=== PATIENT | female | born 1995 | race Caucasian/White ===

== ENCOUNTER 2017-03-16 23:28 | Emergency (ER) | payer BC, OTHER ==
--- NOTE | 2017-03-17 00:46 | ERNOTE ---
Lower Extremity HPI - Narrative Date of Service: 03/16/17 - General Lower Extremities Pain: knee: left Source: patient Exam Limitations: no limitations - Immun/Allergies/Home Medications Immunizations: IMMUNIZATION HX Immunizations Up to Date Yes History of Influenza Vaccine Yes Hx Pneumococcal Vaccination No Allergies/Adverse Reactions: Allergies Allergy/AdvReac Type Severity Reaction Status Date / Time No Known Allergies Allergy Verified 03/16/17 23:43 Home Medications: HOME MEDICATIONS Acetaminophen [Tylenol] 650 mg PO Q4H PRN 09/06/15 [Last Taken 09/05/15] Doxylamine Succinate [Unisom] 25 mg PO HS 09/06/15 [Last Taken 09/05/15] ALPRAZolam [Xanax] 1 mg PO TID PRN 07/13/16 [Last Taken Unknown] Levonorgestrel [Mirena] 1 each IY PRN 07/13/16 [Last Taken Unknown] Bupropion HCl [Wellbutrin Xl] 300 mg PO DAILY 03/16/17 [Last Taken Unknown] Cephalexin 500 mg PO Q6H #20 tab 03/17/17 [Last Taken Unknown] Cephalexin [Keflex] 500 mg PO QID #28 capsule 03/17/17 [Last Taken Unknown] - History of Present Illness Narrative: The patient presents with a left knee injury. She was in her bed and was trying to adjust a fan at the end of the bed. She leaned over too far, fell out , landed with her left knee on a dinner plate, and suffered a laceration to her knee. She denies any other injury. Immunizations are up-to-date. No distal numbness or tingling. Occurred: just prior to arrival Location of Incident: home Method of Injury: Reports: fell Reason for Fall: Reports: lost balance Loss of Consciousness: Reports: no loss of consciousness Modifying Factors - (Improves): Reports: other - direct pressure Associated Symptoms: Denies: snapping, popping sensation, dizzy/light headedness Other Injuries: Reports: none Subsequent Symptoms: Denies: sensory loss, numbness Review of Systems - Review of Systems Constitutional: Present: no symptoms reported Respiratory: Present: no symptoms reported Gastrointestinal/Abdominal: Present: no symptoms reported - Patient's Past Medical History Patient History - Medical: Anxiety, Depression Patient History - Cardiac/Respiratory: No pertinent hx Patient History - Cancer: No Hx of Cancer Patient History - Surgical Procedures: Noncontributory Patient History - Other: None - Social History Living Situations: home Psych History: Hx of Anxiety, Hx of Depression Smoking Status: Current every day smoker Alcohol Use: none Drug Use: none - Immunizations Immunizations Up to Date: Yes Hx Pneumococcal Vaccination: No History of Influenza Vaccine: Yes Physical Exam - Physical Exam General Appearance: Present: wd/wn, alert, mild distress Respiratory: Present: no respiratory distress Cardiovascular/Chest: Present: regular rate, rhythm Peripheral Pulses: N=norm/S=strong/W=weak/B=bound/A=absent: Dorsalis-pedis (R): Normal, Dorsalis-pedis (L): Normal Extremity Exam: Present: normal range of motion, other - 4 cm transverse slightly irregular flap laceration anterior to the right knee. Minimal bleeding. No tendon or joint capsule seen. 1.5 cm deep. Clean. No FB.. Absent: bony tenderness, joint redness, joint swelling Skin Exam: Present: normal color ED Progress - Vital Signs Patient's Vital Signs:: I have reviewed the patient's vital signs. Vital Signs: Vital Signs 03/16/17 23:40 Temperature 37.2 C Pulse Rate 113 H Respiratory 18 Rate Blood Pressure 138/66 O2 Sat by Pulse 100 Oximetry - Progress/Reassessment Chief Complaint: Lower Extremity Pain/ Injury Procedures Left Anterior Knee Anesthesia: 1% Lidocaine - 5 ml I & D Prep: sterile drapes applied Wound's Depth/Shape: into subcutaneous, flap Wound Explored: clean, to base Wound Intervention: irrigated w/saline Distal NVT: neuro/vasc intact, no tendon injury Suture Size/Type: 3-0, nylon Number of Sutures: 9 - running Deep Layer Suture Size/Type: 4-0, other - Vicryl Number Deep Layer Sutures: 3 Plan - Plan Plan: Home. Routine wound repair. ROS in 10 days. Decrease activity. I decided to cover with antibiotics for 5 days after discharge. Rx sent. RN to advise patient. Departure Clinical Impression: Laceration of left knee - Departure Disposition: Home self-care Condition: Good Instructions: Laceration Care, Adult, [id number] Additional Instructions: Remove sutures in 10 days. Keep pressure dressing on for 2 days. Keep clean and dry. Soap and water is ok. Referrals: Barbara Lorenzo MD [Primary Care Provider] - Prescriptions: Cephalexin [Keflex] 500 mg PO QID #28 capsule Cephalexin 500 mg PO Q6H #20 tab
[2017-03-17 00:54] VITALS: BP 128/78
== END 2017-03-17 00:52 | disposition home or self-care (01) ==
LOC: ER 23:28
PROC: 0JQP0ZZ Repair Left Lower Leg Subcutaneous Tissue and Fascia, Open Approach (ICD-10-PCS; principal; 2017-03-16)
DX: S81.012A Laceration without foreign body, left knee, initial encounter (principal); F17.200 Nicotine dependence, unspecified, uncomplicated; W06.XXXA Fall from bed, initial encounter; W22.8XXA Striking against or struck by other objects, initial encounter; Y92.009 Unspecified place in unspecified non-institutional (private) residence as the place of occurrence of the external cause; F32.9 Major depressive disorder, single episode, unspecified

== ENCOUNTER 2017-03-25 18:13 | Emergency (ER) | payer BC, OTHER ==
--- NOTE | 2017-03-25 18:53 | ERNOTE ---
Neuro HPI ER Record Date of Service: 03/25/17 Presenting Symptoms: other - Possible seizure Time Seen by Provider: 03/25/17 18:30 Source: patient, RN notes reviewed Exam Limitations: no limitations Immunizations: IMMUNIZATION HX Immunizations Up to Date Yes History of Influenza Vaccine Yes Hx Pneumococcal Vaccination Yes Allergies/Adverse Reactions: Allergies Allergy/AdvReac Type Severity Reaction Status Date / Time No Known Allergies Allergy Verified 03/25/17 18:24 Home Medications: HOME MEDICATIONS Acetaminophen [Tylenol] 650 mg PO Q4H PRN 09/06/15 [Last Taken 09/05/15] Doxylamine Succinate [Unisom] 25 mg PO HS 09/06/15 [Last Taken 09/05/15] ALPRAZolam [Xanax] 1 mg PO TID PRN 07/13/16 [Last Taken Unknown] Levonorgestrel [Mirena] 1 each IY PRN 07/13/16 [Last Taken Unknown] Bupropion HCl [Wellbutrin Xl] 300 mg PO DAILY 03/16/17 [Last Taken Unknown] - History of Present Illness Narrative: 21 y/o female brought to the ED by her fiance for what may have been a seizure. She was standing in the kitchen early this morning, when her fiance heard a crash and realized she had fallen down. She was unconscious for approximately 2 minutes with her jaw clenched and generalized shaking/jerking movements. She has no recollection of the event or those immediately before it. She denies being incontinent. She has no prior history or seizures. She reports that she started taking an herbal supplement to increase her libido a few days ago. She is also having right shoulder pain since the incident. Date (Duration): 03/25/17 Time (Timing): 05:30 Onset: sudden onset, gone now Context: fall - Character of Deficits Additional Deficits: Absent: vision problems, impaired speech, difficulty swallowing, decrease ability to stand, decrease ability to walk, falling, weakness, off balance, cannot stand Baseline Cognition: Present: alert, oriented x 4 Baseline Gait: Present: walks w/o assistance Associated Symptoms: Denies: fever/chills, sweating, chest pain, neck/back pain , headache, fainting, altered mental status, disoriented, confused, agitated, trouble concentrating, trouble thinking Prior Treament: Denies: recently seen, similar symptoms before Review of Systems - Review of Systems Constitutional: Absent: recent illness, fever, chills, malaise EYE: Absent: eye pain, vision changes ENT: Absent: ear pain, nose congestion, sore throat Respiratory: Absent: shortness of breath, cough Cardiology: Absent: chest pain, palpitations, edema Gastrointestinal/Abdominal: Absent: nausea, vomiting, diarrhea, abdominal pain Genitourinary: Absent: frequency, dysuria Musculoskeletal: Present: joint pain. Absent: back pain, neck pain, joint swelling Skin: Absent: rash, lesions, lumps Neurological: Absent: headache, dizziness/light-headedness Endocrine: Present: no symptoms reported Hematologic/Lymphatic: Absent: easy bruising, easy bleeding Psych: Present: no symptoms reported - Patient's Past Medical History Patient History - Medical: Anxiety, Depression, Headache Patient History - Cardiac/Respiratory: No pertinent hx Patient History - Cancer: No Hx of Cancer Patient History - Surgical Procedures: Noncontributory Patient History - Other: None LMP (females 10-50): Mirena - Social History Living Situations: home Psych History: Hx of Anxiety, Hx of Depression Smoking Status: Current every day smoker Initiate information on Smoking Cessation: No Alcohol Use: none Drug Use: none - Immunizations Immunizations Up to Date: Yes Hx Pneumococcal Vaccination: Yes History of Influenza Vaccine: Yes Physical Exam - Physical Exam General Appearance: Present: wd/wn, alert, no apparent distress Head Exam: Present: normal inspection, no evidence of injury Eye Exam: Normal inspection: bilateral, PERRL: bilateral, EOMI: bilateral Ears, Nose, Throat: Present: normal ENT inspection Neck: Present: normal inspection, nontender, supple, full range of motion Respiratory: Present: no respiratory distress, normal breath sounds, no accessory muscle use, lungs clear Cardiovascular/Chest: Present: regular rate, rhythm, no murmur Extremity Exam: Present: decreased range of motion - Right shoulder. Absent: joint swelling, extremity edema Neurological Exam: Present: alert, oriented, normal mood/affect, no motor/ sensory deficits Skin Exam: Present: normal color, warm/dry [place] Coma Scale - Assess Eye Opening: Spontaneous Motor: Obeys Commands Verbal: Oriented - Total Coma Scale Total: 15 ED Progress - Results and Orders Patient's Lab Results:: I have reviewed the patient's lab results. - Vital Signs Patient's Vital Signs:: I have reviewed the patient's vital signs. Vital Signs: Vital Signs 03/25/17 18:15 Temperature 37.1 C Pulse Rate 127 H Respiratory 16 Rate Blood Pressure 175/102 O2 Sat by Pulse 99 Oximetry - Progress/Reassessment Chief Complaint: Seizure Activity Progress Note-Subjective: 03/25/17 20:24 Discussed drug screen results - takes Xanax and is positive for benzodiazepines , admits to marijuana use, but denies amphetamine use despite positive drug screen result. She admits to taking leftover Tramadol in the past few days. Continues to be tachy in the low 100's with a BP elevated at 160/100. Suspect illicit drug use, combination of Tramadol and Wellbutrin that could both lower seizure threshhold, and use of herbal supplement all contributed to episode. Departure Clinical Impression: Seizure-like activity Shoulder sprain Qualifiers: Encounter type: initial encounter Shoulder sprain type: unspecified sprain Laterality: right Qualified Code(s): S43.401A - Unspecified sprain of right shoulder joint, initial encounter - Departure Disposition: Home Follow Up Needed Condition: Stable Instructions: Shoulder Sprain, Form - Excuse from Work, School, or Physical Activity, Seizure, Adult, [id number] Additional Instructions: Contact neurology for follow up - do not drive until they have evaluated you Stop herbal supplements and recreational drug use Return to ER as needed for new/worsening symptoms Follow up with orthopedics if shoulder pain does not improve in 7 to 10 days Referrals: Barbara Lorenzo MD [Primary Care Provider] -
[2017-03-25 19:13] LABS: Urine Bilirubin Negative (NEGATIVE); Urine Blood Negative /ul (NEGATIVE); Urine Ketone Negative (NEGATIVE); Urine Nitrite Negative (NEGATIVE); Urine Protein Negative (NEGATIVE); Urine Specific Gravity >=1.030 SP.GR. (1.005-1.010); Urine Urobilinogen Normal (NORMAL)
[2017-03-25 19:19] LABS: Hematocrit 41.1 % (37.0-47.0); Hemoglobin 13.3 gm/dL (12.5-16.0); Mean Cell Volume 69.4 fl (78-100); Mean Corpuscular Hemoglobin 22.5 pg (27-31); Mean Corpuscular Hgb Conc 32.4 g/dl (32-36); Mean Platelet Volume 10.3 fl (6.0-9.5); Neutrophil # 12.2 K/mm3 (1.3-6.0); Neutrophil % 78.7 % (42-75.0); Platelet Count 285 K/mm3 (150-450); Red Blood Count 5.92 M/mm3 (4.2-5.4); Red Cell Distribution Width 15.8 % (11.5-14.0); White Blood Count 15.5 K/mm3 (4.0-10.5)
[2017-03-25 19:25] LABS: Urine Appearance Clear; Urine Bacteria 1+; Urine Color Yellow; Urine RBC 0-5 /hpf (0-5); Urine WBC 0-5 /hpf (0-5)
[2017-03-25 19:28] LABS: Cocaine Ur Negative (NEGATIVE); Urine Barbiturate Negative (NEGATIVE); Urine Opiates Negative (NEGATIVE); Urine PCP Negative (NEGATIVE)
[2017-03-25 19:33] LABS: Urine Benzodiazepines Positive (NEGATIVE); Urine THC Positive (NEGATIVE)
[2017-03-25 19:37] LABS: Albumin * 3.8 gm/dl (3.4-5.0); Anion Gap 15.8 mmol/L (6.8-13.8); BUN/Creatinine Ratio 10.7 (9.0-21.6); Bilirubin, Total 0.5 mg/dL (0.0-1.1); Ca. Corrected For Albumin 9.1 mg/dL (8.4-10.2); Calcium * 9.3 mg/dL (7.9-10.9); Carbon Dioxide 23.6 mmol/L (24-32.6); Potassium 3.4 mmol/L (3.4-4.6); Total Protein 7.4 gm/dL (6.2-8.2)
[2017-03-25 21:41] VITALS: BP 142/90
== END 2017-03-25 21:05 | disposition home or self-care (01) ==
LOC: ER 18:13
DX: R56.9 Unspecified convulsions (principal); S43.401A Unspecified sprain of right shoulder joint, initial encounter; F17.200 Nicotine dependence, unspecified, uncomplicated; W18.39XA Other fall on same level, initial encounter; Y92.000 Kitchen of unspecified non-institutional (private) residence as the place of occurrence of the external cause; F32.9 Major depressive disorder, single episode, unspecified; F41.9 Anxiety disorder, unspecified

== ENCOUNTER 2017-07-05 17:05 | Emergency (ER) | payer BC ==
[2017-07-05] MEDS ORDERED: KETOROLAC TROMETHAMINE 30 MG/ML VIAL IV ONE (18:48)
[2017-07-05] MEDS ORDERED: PROMETHAZINE HCL 25 MG in DEXTROSE 5 % IN WATER 50 ML IV ONE ×2 (18:48)
[2017-07-05] MEDS ORDERED: diphenhydrAMINE HCL 50 MG/ML VIAL IV ONE (18:48)
[2017-07-05] MEDS ORDERED: NORMAL SALINE 1,000 ML IV ONE (18:48)
--- NOTE | 2017-07-05 18:55 | ERNOTE ---
Headache ER HPI - Narrative Date of Service: 07/05/17 - General Presenting Symptoms: "migraine" Time Seen by Provider: 07/05/17 18:40 Source: patient Exam Limitations: no limitations - Immun/Allergies/Home Medications Immunizations: IMMUNIZATION HX Immunizations Up to Date Yes History of Influenza Vaccine No Hx Pneumococcal Vaccination Yes Allergies/Adverse Reactions: Allergies No Known Allergies Allergy (Verified 07/05/17 17:48) Home Medications: HOME MEDICATIONS Acetaminophen [Tylenol] 650 mg PO Q4H PRN 09/06/15 [Last Taken 09/05/15] Doxylamine Succinate [Unisom] 25 mg PO HS 09/06/15 [Last Taken 09/05/15] ALPRAZolam [Xanax] 1 mg PO TID PRN 07/13/16 [Last Taken Unknown] Levonorgestrel [Mirena] 1 each IY PRN 07/13/16 [Last Taken Unknown] Bupropion HCl [Wellbutrin Xl] 300 mg PO DAILY 03/16/17 [Last Taken Unknown] HYDROcodone/ACETAMINOPHEN [Vicodin 5-300 mg Tablet] 1 tab PO Q6H PRN 07/05/17 [ Last Taken Unknown] Topiramate [Topamax] 25 mg PO BID 07/05/17 [Last Taken Unknown] lamoTRIgine [Lamotrigine] 50 mg PO DAILY 07/05/17 [Last Taken Unknown] levETIRAcetam [Keppra] 250 mg PO DAILY 07/05/17 [Last Taken Unknown] - History of Present Illness Narrative: Pt. comes in with c/o migraine for 3 days. Pt. states that she has a hx of migraines for 18 years and has a neurologist and he has her on a controlling medication for the migraines as well as vicodin for abortive medicine. Pt. states that this migraine is similar to her previous migraines and denies that this is the worst headache ever. Pt. denies any relief with the vicodin and states that her migraine is accompanied by nausea and vomiting. Pt. denies any vision changes, dizziness, lightheadedness, fever, SOB, CP, numbness, or tingling. Pt. states that light exacerbates the pain. Review of Systems - Review of Systems Constitutional: Present: no symptoms reported. Absent: recent illness, fever, chills, weakness, fatigue, malaise EYE: Present: no symptoms reported. Absent: double vision, vision changes ENT: Present: no symptoms reported. Absent: nose pain, nose congestion, nasal drainage, sore throat Respiratory: Present: no symptoms reported. Absent: shortness of breath, cough , wheezing Cardiology: Present: no symptoms reported. Absent: chest pain, palpitations, edema Gastrointestinal/Abdominal: Present: no symptoms reported. Absent: nausea, vomiting, diarrhea, abdominal pain Genitourinary: Present: no symptoms reported. Absent: frequency, pain, dysuria , decreased urinary output Musculoskeletal: Present: no symptoms reported. Absent: back pain, joint pain Skin: Present: no symptoms reported. Absent: rash, change in color Neurological: Present: headache. Absent: dizziness/light-headedness, numbness, tingling Endocrine: Present: no symptoms reported Hematologic/Lymphatic: Present: no symptoms reported Psych: Present: no symptoms reported All Other Systems: All systems neg except as marked - Patient's Past Medical History Patient History - Medical: Anxiety, Depression, Headache, Seizures Patient History - Cardiac/Respiratory: No pertinent hx Patient History - Cancer: No Hx of Cancer Patient History - Surgical Procedures: No surgical history Patient History - Other: None - Social History Living Situations: home Psych History: Hx of Anxiety, Hx of Depression Smoking Status: Current every day smoker Have you smoked in the past 12 months: Yes Alcohol Use: none Drug Use: none - Immunizations Immunizations Up to Date: Yes Hx Pneumococcal Vaccination: Yes History of Influenza Vaccine: No Physical Exam - Physical Exam General Appearance: Present: wd/wn, alert, no apparent distress Head Exam: Present: normal inspection, no evidence of injury, no tenderness w palpation Eye Exam: Normal inspection: bilateral, PERRL: bilateral, EOMI: bilateral Ears, Nose, Throat: Present: normal ENT inspection, normal pharynx. Absent: abnormal TM (R), abnormal TM (L), nasal congestion, sinus pain/drainage, pharyngeal erythema, pharyngeal swelling Neck: Present: normal inspection, nontender, supple, full range of motion. Absent: lymphadenopathy (R), lymphadenopathy (L) Respiratory: Present: no respiratory distress, normal breath sounds, no accessory muscle use, chest nontender, lungs clear Cardiovascular/Chest: Present: regular rate, rhythm, no murmur, normal peripheral pulses Gastrointestinal/Abdominal: Present: normal bowel sounds, nontender, nondistended, soft, no organomegaly Back Exam: Present: normal inspection, normal range of motion, no CVA tenderness , no vertebral tenderness Extremity Exam: Present: normal inspection, non-tender, normal range of motion, no edema Neurological Exam: Present: alert, oriented, normal mood/affect, no motor/ sensory deficits, director retirement II-XII nml as tested, normal cerebellar test Skin Exam: Present: normal color, warm/dry. Absent: pallor, skin rash ED Progress - Vital Signs Patient's Vital Signs:: I have reviewed the patient's vital signs. Vital Signs: Vital Signs 07/05/17 17:52 Temperature 37.2 C Pulse Rate 74 Respiratory 20 Rate Blood Pressure 145/92 O2 Sat by Pulse 99 Oximetry - Progress/Reassessment Chief Complaint: Headache Progress:: Pain free at discharge Departure Clinical Impression: Migraine Qualifiers: Migraine type: unspecified Status migrainosus presence: without status migrainosus Intractability: not intractable Qualified Code(s): G43.909 - Migraine, unspecified, not intractable, without status migrainosus - Departure Disposition: Home self-care Condition: Good Instructions: Recurrent Migraine Headache, [id number] Additional Instructions: Please follow up with primary provider in 2-3 days. Referrals: Barbara Lorenzo MD [Primary Care Provider] -
[2017-07-05] MEDS ORDERED: diphenhydrAMINE HCL 50 MG/ML VIAL ONE ×2 (19:23→20:27)
[2017-07-05] MEDS ORDERED: KETOROLAC TROMETHAMINE 30 MG/ML VIAL ONE (19:23)
[2017-07-05] MEDS ORDERED: diphenhydrAMINE HCL 50 MG/ML VIAL IM ONE (20:24)
[2017-07-05] MEDS ORDERED: traMADol HCL 50 MG TABLET PO ONE (20:24)
[2017-07-05] MEDS ORDERED: traMADol HCL 50 MG TABLET ONE (20:27)
[2017-07-05 20:40] VITALS: BP 124/83
== END 2017-07-05 20:41 | disposition home or self-care (01) ==
LOC: ER 17:05
DX: G43.909 Migraine, unspecified, not intractable, without status migrainosus (principal); F41.8 Other specified anxiety disorders; F17.200 Nicotine dependence, unspecified, uncomplicated